=== PATIENT | female | born 1945 | race Asian ===

== ENCOUNTER 2020-11-15 11:59 | Outpatient (REF) | payer MEDICARE, SELFPAY ==
[2020-11-15 13:55] LABS: MANUAL DIFF FLAG NO
[2020-11-15 14:08] LABS: Basophils Percent Auto 0.4 % (0-2); Eosinophils Absolute Auto 0.4 X10*3/uL (0.0-0.4); Eosinophils Percent Auto 5.1 % (0-4); Hematocrit 41.5 % (37-47); Hemoglobin 13.2 g/dl (12.0-16.0); Imm Gran Abs Auto 0.01 X10*3/uL (0.00-0.03); Imm Gran Pct Auto 0.1 % (0.0-0.4); Lymphocytes Absolute Auto 2.2 X10*3/uL (1.2-4.9); Lymphocytes Percent Auto 31.9 % (20-40); Mean Corpuscular HGB Conc 31.8 g/dl (31.0-35.0); Mean Corpuscular Hemoglobin 26.9 pg (27.0-33.0); Mean Corpuscular Volume 84.7 fL (80-98); Mean Platelet Volume 10.3 fL (9.4-12.3); Monocytes Absolute Auto 0.5 X10*3/uL (0.1-1.2); Monocytes Percent Auto 6.5 % (2-11); Neutrophils Absolute Auto 3.9 X10*3/uL (2.0-8.3); Platelet Count 258 X10*3/uL (160-400); Red Cell Distribution Width 13.1 % (11.0-16.0); White Blood Count 6.9 X10*3/uL (4.8-10.8)
[2020-11-15 14:16] LABS: Alanine Aminotransferase 12 U/L (0-31); Alkaline Phosphatase 82 U/L (39-117); Anion Gap 15 (12-20); Aspartate Amino Transferase 16 U/L (5-31); Bilirubin Total 0.6 mg/dL (0.0-1.0); Blood Urea Nitrogen 16 mg/dL (9-16); Calcium 9.3 mg/dL (8.4-10.2); Carbon Dioxide 26 mmol/L (22-29); Chloride 104 mmol/L (96-108); Estimated Glomerular Filt Rate 53; Glucose Random 128 mg/dL (60-115); Potassium 3.8 mmol/L (3.3-5.1); Sodium 141 mmol/L (135-145); Total Protein 6.8 g/dL (6.5-8.0)
== END 2020-11-15 12:00 | disposition home or self-care (01) ==
LOC: HO.HMGCLDS 11:59
PROVIDERS: PCP Internal Medicine; Visit Provider Internal Medicine
DX: E66.09 Other obesity due to excess calories (principal); I10 Essential (primary) hypertension; J45.40 Moderate persistent asthma, uncomplicated
CPT/HCPCS: 36415; 80053; 85025

== ENCOUNTER 2023-01-13 10:29 | Outpatient (AMB) | payer MEDICARE, SELFPAY ==
--- NOTE | 2023-01-13 10:34 | AM.OFFVISMDC ---
Intake Vital Signs 01/13/23 11:03 Height 4 ft 11 in Weight 146 lb BMI 29.5 BP 130/90 H Blood Pressure Location Lt brachial Position Sitting Pulse 64 Pulse Source Pulse Oximeter Pulse Oximetry (%) 94 Oxygen Delivery Method Room Air Intake Visit Reasons: AWV Allergies No Known Allergies [No Known Allergies*] Allergy (Unverified 01/13/23 11:03) Medication List - Last Reconciled 01/13/23 by Rodrigo Burns MD acetaminophen (Tylenol Extra Strength) 500 mg PO Q6H PRN ascorbate calcium (vitamin C) 500 mg PO DAILY cholecalciferol (vitamin D3) 50 mcg PO DAILY fluticasone furoate-vilanterol 200-25 mcg/dose (Breo Ellipta) 1 inh inhalation DAILY 30 days losartan-hydrochlorothiazide 100-25 mg 1 tab PO DAILY 90 days naproxen sodium (Aleve) 220 mg PO Q12H PRN Do you need a note to return to daycare/school/sports/work: No HPI AWV HPI Details Patient is 77-year-old female came in today for her regular follow-up and Medicare wellness visit Patient was supposed to have labs done early this year but she did not because she did not had a ride She says that she is fasting today and she will have it done today. Asthma is stable patient is on Breo inhaler daily Blood pressure is 130/90, patient is taking losartan hydrochlorothiazide 100-25 mg and is tolerating medication Bittinger blood pressure for this patient is less than 140 systolic. Patient has signed forms today to be DNR after discussion. She has not seen eye doctor in a while I have placed a referral for her Also instructed patient to call the [facility] to see if they can provide her writes to doctor's appointment As currently she is dependent on her friend who is limited on timings. She has declined to do any mammograms Pap smear or colonoscopies. Follow-up 3 months HPI Comments History of Present Illness Details AWV Medical/social history reviewed Past medical history reviewed [place] of care / care team list updated Surgical/ hospitalization history reviewed Current medications including OTC and supplements reviewed Family history reviewed Tobacco controlled form updated Alcohol use form updated Illicit drug use in social history reviewed Current diagnosis of depression ?screening updated Appropriate PHQ 2/PHQ-9 completed . Vital signs reviewed Alcohol tobacco drug use reviewed and discussed . MMSE completed . ? Fall risk: ?Assessed Fall history: ?None Have you had any falls with injury in the past year?? No Have you had 2 or more falls in the past year?? No Fall risk assessment completed Home safety discussed with the patient Functional ability assessed and discussed and documented Activities of daily living reviewed and appropriate actions taken . HRA filled out by the patient and reviewed by provider and scanned . Appropriate written screening schedule established . Any health advise needed provided . Advance care planning discussed with the patient , necessary paperwork filled Examination IPPE/AWE: Balance intact Romberg intact Tandem walk intact walk-in turn intact rise from sit to stand intact . ?Hearing ?whisper test pass . Medication list reviewed, patient is stable on medications All other providers patient is seeing discussed and noted . COUNTS INCLUDE 234 BEDS AT THE [facility] Social History Housing: House Patient Tobacco Use Status: Never used Tobacco e-Cigarette/Vaping Use: Never Used Current occupational status: retired Questionnaire Medicare Wellness Checkup [age] What gender do you identify with?: female During the past 4 weeks, how much have you been bothered by emotional problems such as feeling anxious, depressed, irritable, sad or downhearted, and blue?: not at all During the past 4 weeks, has your physical & emotional health limited your social activities with family, friends, neighbors, or groups?: not at all During the past 4 weeks, how much bodily pain have you generally had?: mild pain During the past 4 weeks, was someone available to help you if you needed & wanted help?: yes, as much as I wanted Can you get to places out of walking distance without help? (For eg., can you travel alone on buses, taxis or drive your car?): Yes Can you go shopping for groceries or clothes without someone's help?: Yes Can you prepare your own meals?: Yes Can you do your housework without help?: Yes Because of any health problems, do you need the help of another person with your personal care needs such as eating, bathing, dressing or getting around the house?: No Can you handle your own money without help?: Yes During the past 4 weeks, how would you rate your health in general?: good During the past 4 weeks how have things been going for you?: pretty well Are you having difficulties driving your car?: not applicable, I don't use a car Do you always fasten your seat belt when you are in a car?: yes, usually During past 4 weeks, have you been bothered by the following: never: Falling or dizzy when standing up, Sexual problems?, Trouble eating well?, Teeth or denture problems?, Problems using the telephone? and Tiredness or fatigue? Have you fallen 2 or more times in the past year?: No Are you afraid of falling?: Yes Are you a smoker?: no During the past 4 weeks, how many drinks of wine, beer, or other alcoholic beverages did you have?: no alcohol at all Do you exercise for about 20 minutes 3 or more times a week?: no, I usually do not exercise this much How often do you have trouble taking medicines the way you have been told to take them?: I seldom take medications as prescribed How confident are you that you can control & manage most of your health problems?: very confident What is your race?: Mini Mental State Exam (MMSE) Orientation What is the (year) (season) (date) (day) (month)?: year, season, date, day and month Where are we (state) (county) (town or city) (hospital) (floor)?: state, county, town or city, hospital/clinic and floor Score Score: 10 Activity of Daily Living Bathing - sponge bath, tub bath or shower: receives no assistance (gets in/out by self, if usual bathing means Dressing - getting clothes from closets & drawers, including inner/outer garments & fasteners.: gets clothes & gets completely dressed without help Toileting - going to the 'toilet room' for urine/bowel elimination & cleaning self/arranging clothes: goes to toilet room, cleans self, arranges clothes without help Transfer: moves in & out of bed and chair without help (may use support object) Continence: controls urination/bowel movements completely by self Feeding: feeds self without help Total Score: 0 Information obtained from: patient Using telephone: independent Traveling: needs assistance Shopping: needs assistance Preparing meals: independent Housework: independent Taking medicine: independent Managing money: independent PHQ-9 Over the last 2 weeks, how often have you been bothered by any of the following problems? 1. Little interest or pleasure in doing things: not at all 2. Feeling down, depressed, or hopeless: not at all 3. Trouble falling or staying asleep, or sleeping too much: not at all 4. Feeling tired or having little energy: not at all 5. Poor appetite or overeating: not at all 6. Feeling bad about yourself - or that you are a failure or have let yourself or your family down: not at all 7. Trouble concentrating on things, such as reading the newspaper or watching television: not at all 8. Moving or speaking so slowly that other people could have noticed. Or the opposite - being so fidgety or restless that you have been moving around a lot more than usual: not at all 9. Thoughts that you would be better off or of hurting yourself in some way: not at all Total score: 0 Depression Screening Interpretation: Negative 11667 - PHQ-9 Billing: Yes Source: Developed by Drs. Joseph Mcadams, Kassi Euceda, Cirilo Grossman and colleagues, with an educational yancy from [employer]. Review of Systems Const Denies chills and Denies fever(s) ENT Denies epistaxis and Denies nasal discharge Card Denies chest pain Resp Denies chest congestion, Denies cough and Denies hemoptysis GI Denies diarrhea and Denies nausea Skin/Breast Denies rash Neuro Reports no additional complaints Psych Reports no additional complaints Endo Reports no additional complaints Physical Exam Vital Signs: Last Vital Signs Pulse 64 01/13/23 11:03 BP 130/90 H 01/13/23 11:03 Pulse Ox 94 01/13/23 11:03 Oxygen Delivery Method Room Air 01/13/23 11:03 BMI result Body Mass Index 29.5 Const General: cooperative, comfortable and no acute distress Orientation/consciousness: patient oriented x3 HEENT Head: Yes normocephalic Eyes General: appearance normal, both eyes and all related structures Neck Other: Supple Neck: Yes supple Resp Effort & Inspection: normal respiratory effort, no cough and no stridor Cardio Rhythm: regular rhythm Heart sounds: S1 normal heart sound present and S2 normal heart sound present Skin General skin exam: turgor normal Neuro Other: Motor sensory intact General: patient oriented x3, tone normal and moves all extremities Extrem Other: No lower extremity swelling. Right lower extremity: no edema Left lower extremity: no edema Psych Other: Normal effect, speech clear Assessment & Plan Assessment & Plan (1) Blurring of vision: Code(s): H53.8 - Other visual disturbances (2) Hypertension, essential: Code(s): I10 - Essential (primary) hypertension (3) Asthma, moderate persistent: Code(s): J45.40 - Moderate persistent asthma, uncomplicated (4) Obesity due to excess calories: Code(s): E66.09 - Other obesity due to excess calories Plan Patient is 77-year-old female came in today for her regular follow-up and Medicare wellness visit Patient was supposed to have labs done early this year but she did not because she did not had a ride She says that she is fasting today and she will have it done today. Asthma is stable patient is on Breo inhaler daily Blood pressure is 130/90, patient is taking losartan hydrochlorothiazide 100-25 mg and is tolerating medication Bittinger blood pressure for this patient is less than 140 systolic. Patient has signed forms today to be DNR after discussion. She has not seen eye doctor in a while I have placed a referral for her Also instructed patient to call the [facility] to see if they can provide her writes to doctor's appointment As currently she is dependent on her friend who is limited on timings. She has declined to do any mammograms Pap smear or colonoscopies. Follow-up 3 months Orders: Referrals Ophthalmology Referral H53.8 - Other visual disturbances Quality Reporting (2019) Depression/Bipolar (159/160/161/177) PHQ-9: Total score: 0 Coding Level of Care Code Medicare First (G0438) Est Pt Level 3 (60136) Diagnoses Blurring of vision H53.8 Hypertension, essential I10 Asthma, moderate persistent J45.40 Obesity due to excess calories E66.09 CPT Codes Advance Care Planning - Time spent: 16-45 minutes ([id number]) Advance Care Planning Forms completed: Health Care Proxy and [facility]OLST Time spent: 16-45 minutes
[2023-01-13 11:03] VITALS: BP 130/90; PULSE 64; O2SAT 94; BMI 29.5
== END 2023-01-13 11:28 | disposition home or self-care (01) ==
PROVIDERS: Visit Provider Internal Medicine
DX: I10 Essential (primary) hypertension (principal); J45.40 Moderate persistent asthma, uncomplicated; E66.09 Other obesity due to excess calories; Z68.29 Body mass index [BMI] 29.0-29.9, adult; H53.8 Other visual disturbances
CPT/HCPCS: G0438

== ENCOUNTER 2023-01-13 11:28 | Outpatient (REF) | payer MEDICARE, SELFPAY ==
[2023-01-13 13:22] LABS: MANUAL DIFF FLAG NO
[2023-01-13 13:45] LABS: Basophils Percent Auto 0.7 % (0-2); Eosinophils Absolute Auto 0.2 X10*3/uL (0.0-0.4); Eosinophils Percent Auto 3.6 % (0-4); Hemoglobin 14.1 g/dl (12.0-16.0); Imm Gran Abs Auto 0.01 X10*3/uL (0.00-0.03); Imm Gran Pct Auto 0.2 % (0.0-0.4); Lymphocytes Absolute Auto 1.9 X10*3/uL (1.2-4.9); Lymphocytes Percent Auto 32.5 % (20-40); Mean Corpuscular Hemoglobin 28.3 pg (27.0-33.0); Mean Corpuscular Volume 88.2 fL (80.0-98.0); Mean Platelet Volume 10.5 fL (9.4-12.3); Monocytes Absolute Auto 0.3 X10*3/uL (0.1-1.2); Monocytes Percent Auto 4.9 % (2-11); Neutrophils Absolute Auto 3.4 x10*3/uL (2.0-8.3); Neutrophils Percent Auto 58.1 % (45-73); Platelet Count 201 X10*3/uL (160-400); Red Blood Count 4.99 X10*6/uL (4.20-5.50); Red Cell Distribution Width 12.7 % (11.0-16.0); White Blood Count 5.8 X10*3/uL (4.8-10.8)
[2023-01-13 14:16] LABS: Alanine Aminotransferase 15 U/L (0-31); Albumin Level 4.1 g/dL (3.5-5.0); Alkaline Phosphatase 64 U/L (39-117); Anion Gap 12 (12-20); Aspartate Amino Transferase 17 U/L (5-31); Bilirubin Total 0.5 mg/dL (0.0-1.0); Blood Urea Nitrogen 28 mg/dL (9-16); Calcium 10.4 mg/dL (8.4-10.2); Carbon Dioxide 30 mmol/L (22-29); Chloride 103 mmol/L (96-108); Cholesterol 224 mg/dL (<200); Estimated Glomerular Filt Rate 57; Glucose Fasting 124 mg/dL (60-99); HDL Cholesterol 83 mg/dL (>40); LDL Cholesterol Calculated 126 mg/dL (<100); Potassium 3.9 mmol/L (3.3-5.1); Sodium 141 mmol/L (135-145); Triglycerides 76 mg/dL (<150)
[2023-01-13 14:32] LABS: TSH reflex Free T4 1.68 uIU/mL (0.32-4.0)
[2023-01-17 15:03] LABS: Vitamin D 25-OH, D2 <4 ng/mL; Vitamin D 25-OH, D3 48 ng/mL; Vitamin D 25-OH, Total 48 ng/mL (30-100)
== END 2023-01-13 11:29 | disposition home or self-care (01) ==
LOC: HO.HMGCLDS 11:28
PROVIDERS: PCP Internal Medicine; Visit Provider Internal Medicine
DX: E66.09 Other obesity due to excess calories (principal); J45.40 Moderate persistent asthma, uncomplicated; M25.562 Pain in left knee; I10 Essential (primary) hypertension
CPT/HCPCS: 36415; 80053; 80061; 82306; 84443; 85025

== ENCOUNTER 2023-07-06 10:38 | Outpatient (AMB) | payer MEDICARE, SELFPAY ==
[2023-07-06 10:46] VITALS: BP 138/82; PULSE 70; O2SAT 96; BMI 30.5
--- NOTE | 2023-07-06 10:46 | A.OFFPC_ITS ---
Vital Signs 07/06/23 10:46 Height 4 ft 11 in Weight 151 lb 2 oz BMI 30.5 BP 138/82 Blood Pressure Location Rt brachial Position Sitting Pulse 70 Pulse Source Pulse Oximeter Pulse Oximetry (%) 96 Oxygen Delivery Method Room Air Intake Visit Reasons: Overdue F/u~ Allergies No Known Allergies [No Known Allergies*] Allergy (Verified 07/06/23 10:52) Medication List - Last Reconciled 07/06/23 by Rodrigo Burns MD ascorbate calcium (vitamin C) 500 mg PO DAILY cholecalciferol (vitamin D3) 50 mcg PO DAILY fluticasone furoate-vilanterol 200-25 mcg/dose (Breo Ellipta) 1 inh inhalation DAILY 30 days losartan-hydrochlorothiazide 100-25 mg 1 tab PO DAILY 90 days naproxen sodium (Aleve) 220 mg PO Q12H PRN Tobacco use date assessed: 07/06/23 Fall risk assessment: No Falls in past year Last assessed Fall Risk: 07/06/23 Dental Screening Dental Screen Date: 07/06/23 Did you have a dental visit in the last 12 months?: Yes Did you have a dental problem in the last 6 months where you did not have access to dental care?: No Was dental information given to patient?: Patient has dentist HPI Overdue F/u~ HPI Details Patient is 78-year-old female came in today for her regular follow-up appointment She missed her regular 3 month follow-up appointment last time she was seen was December of last year Due for labs, order placed she will have it done today Taking all her medications no side effects Blood pressure is 138/82 Patient has lost her partner of 52 years 2 weeks ago she is very depressed and weeping She does not want to take any medication however requesting therapy. I have our behavior health coordinator talk to the patient refill help her set up with a therapist Asthma is stable patient is taking her inhaler She has appointment with me in August for follow-up [facility] Social History Housing: House Patient Tobacco Use Status: Never used Tobacco e-Cigarette/Vaping Use: Never Used Current occupational status: retired Cognitive needs: No Hearing needs: No Vision needs: No Questionnaire Thrive Questionnaire Date Thrive assessed: 11/15/20 AUDIT C Alcohol Use Questionnaire (AUDIT-C) 1. How often do you have a drink containing alcohol?: Never 3. How often do you have six or more drinks on one occasion?: Never Total Score: 0 Score Reviewed/Action Taken: Yes Review of Systems Const Denies chills and Denies fever(s) ENT Denies epistaxis and Denies nasal discharge Card Denies chest pain Resp Denies chest congestion, Denies cough and Denies hemoptysis GI Denies diarrhea and Denies nausea Skin/Breast Denies rash Neuro Reports no additional complaints Psych Reports no additional complaints Endo Reports no additional complaints Physical exam (Primary Care) Vital Signs: Last Vital Signs Pulse 70 07/06/23 10:46 BP 138/82 07/06/23 10:46 Pulse Ox 96 07/06/23 10:46 Oxygen Delivery Method Room Air 07/06/23 10:46 BMI result Body Mass Index 30.5 Tobacco/Smoking Status: Tobacco use Status Tobacco use date assessed 07/06/23 07/06/23 10:52 Patient Tobacco Use Status Never used Tobacco 07/06/23 10:48 e-Cigarette/Vaping Use Never Used 07/06/23 10:48 Thrive Assessment: Date of Thrive Assessment Date Thrive assessed 11/15/20 07/06/23 10:48 Const General: cooperative, comfortable and no acute distress Orientation/consciousness: patient oriented x3 HENMT Head: Yes normocephalic Eyes General: appearance normal, both eyes and all related structures Neck Neck: Yes supple Resp Effort & Inspection: normal respiratory effort, no cough and no stridor Cardio Rhythm: regular rhythm Heart sounds: S1 normal heart sound present and S2 normal heart sound present Skin General skin exam: turgor normal Neuro General: patient oriented x3, tone normal and moves all extremities Extrem Right lower extremity: no edema Left lower extremity: no edema Assessment and Plan Assessment & Plan (1) Hypertension, essential: Code(s): I10 - Essential (primary) hypertension (2) Diet-controlled diabetes mellitus: Code(s): E11.9 - Type 2 diabetes mellitus without complications (3) Asthma, moderate persistent: Code(s): J45.40 - Moderate persistent asthma, uncomplicated Qualifiers: Asthma complication type: uncomplicated Qualified Code(s): J45.40 - Moderate persistent asthma, uncomplicated (4) Bereavement reaction: Code(s): F43.20 - Adjustment disorder, unspecified; Z63.4 - Disappearance and of family member (5) Obesity due to excess calories: Code(s): E66.09 - Other obesity due to excess calories Qualifiers: Body mass index: BMI 30.0-30.9 Obesity classification: adult class 1 (BMI 30 - 34.9) Serious obesity comorbidity presence: with serious comorbidity Qualified Code(s): E66.09 - Other obesity due to excess calories; Z68.30 - Body mass index [BMI] 30.0-30.9, adult (6) Primary osteoarthritis of knees, bilateral: Code(s): M17.0 - Bilateral primary osteoarthritis of knee Plan Patient is 78-year-old female came in today for her regular follow-up appointment She missed her regular 3 month follow-up appointment last time she was seen was December of last year Due for labs, order placed she will have it done today Taking all her medications no side effects Blood pressure is 138/82 Patient has lost her partner of 52 years 2 weeks ago she is very depressed and weeping She does not want to take any medication however requesting therapy. I have our behavior health coordinator talk to the patient refill help her set up with a therapist Asthma is stable patient is taking her inhaler Patient has primary osteoarthritis multiple joints, stable at this time She has appointment with me in August for follow-up Orders: Orders Complete Blood Count Auto Diff Today E11.9 - Type 2 diabetes mellitus without complications, E66.09 - Other obesity due to excess calories, I10 - Essential (p rimary) hypertension, J45.40 - Moderate persistent asthma, uncomplicated, M17.0 - Bilateral primary osteoarthritis of knee Hemoglobin A1c Today E11.9 - Type 2 diabetes mellitus without complications, E66.09 - Other obesity due to excess calories, I10 - Essential (primary) hypertension, J45.40 - Moderate persistent asthma, uncomplicated, M17.0 - Bilateral primary osteoarthritis of knee Comprehensive Met. Panel Today E11.9 - Type 2 diabetes mellitus without complications, E66.09 - Other obesity due to excess calories, I10 - Essential (primary) hypertension, J45.40 - Moderate persistent asthma, uncomplicated, M17.0 - Bilateral primary osteoarthritis of knee Microalbumin, Random (w Creat) Today E11.9 - Type 2 diabetes mellitus without complications, E66.09 - Other obesity due to excess calories, I10 - Essential (primary) hypertension, J45.40 - Moderate persistent asthma, uncomplicated, M17.0 - Bilateral primary osteoarthritis of knee Coding Level of Care Code Est Pt Level 4 (44241) Diagnoses Hypertension, essential I10 Diet-controlled diabetes mellitus E11.9 Moderate persistent asthma without complication J45.40 Asthma complication type: uncomplicated Bereavement reaction F43.20; Z63.4 Class 1 obesity due to excess calories with serious comorbidity and body mass index (BMI) of 30.0 to 30.9 in adult E66.09; Z68.30 Body mass index: BMI 30.0-30.9 Obesity classification: adult class 1 (BMI 30 - 34.9) Serious obesity comorbidity presence: with serious comorbidity Primary osteoarthritis of knees, bilateral M17.0
== END 2023-07-06 11:33 | disposition home or self-care (01) ==
PROVIDERS: PCP Internal Medicine; Visit Provider Internal Medicine
DX: I10 Essential (primary) hypertension (principal); E11.9 Type 2 diabetes mellitus without complications; J45.40 Moderate persistent asthma, uncomplicated; F43.20 Adjustment disorder, unspecified; Z63.4 Disappearance and death of family member; E66.09 Other obesity due to excess calories; Z68.30 Body mass index [BMI] 30.0-30.9, adult; M17.0 Bilateral primary osteoarthritis of knee
CPT/HCPCS: 99214

== ENCOUNTER 2023-07-06 11:34 | Outpatient (REF) | payer MEDICARE, SELFPAY ==
[2023-07-06 13:23] LABS: MANUAL DIFF FLAG NO
[2023-07-06 13:34] LABS: Basophils Percent Auto 0.5 % (0-2); Eosinophils Absolute Auto 0.2 X10*3/uL (0.0-0.4); Eosinophils Percent Auto 2.5 % (0-4); Hematocrit 44.9 % (37.0-47.0); Hemoglobin 14.6 g/dl (12.0-16.0); Imm Gran Abs Auto 0.02 X10*3/uL (0.00-0.03); Imm Gran Pct Auto 0.3 % (0.0-0.4); Lymphocytes Absolute Auto 1.4 X10*3/uL (1.2-4.9); Lymphocytes Percent Auto 23.7 % (20-40); Mean Corpuscular HGB Conc 32.5 g/dl (31.0-35.0); Mean Corpuscular Volume 86.2 fL (80.0-98.0); Mean Platelet Volume 10.8 fL (9.4-12.3); Monocytes Absolute Auto 0.4 X10*3/uL (0.1-1.2); Monocytes Percent Auto 5.9 % (2-11); Neutrophils Absolute Auto 4.1 x10*3/uL (2.0-8.3); Neutrophils Percent Auto 67.1 % (45-73); Platelet Count 201 X10*3/uL (160-400); Red Blood Count 5.21 X10*6/uL (4.20-5.50); Red Cell Distribution Width 12.7 % (11.0-16.0); White Blood Count 6.1 X10*3/uL (4.8-10.8)
[2023-07-06 13:41] LABS: Estimated Average Glucose 120 mg/dL; Hemoglobin A1c % 5.8 % (<6.0)
[2023-07-06 13:42] LABS: Alanine Aminotransferase 13 U/L (0-31); Alkaline Phosphatase 72 U/L (39-117); Anion Gap 13 (12-20); Aspartate Amino Transferase 15 U/L (5-31); Bilirubin Total 0.6 mg/dL (0.0-1.0); Blood Urea Nitrogen 32 mg/dL (9-16); Calcium 9.6 mg/dL (8.4-10.2); Carbon Dioxide 30 mmol/L (22-29); Chloride 101 mmol/L (96-108); Estimated Glomerular Filt Rate 59; Glucose Random 126 mg/dL (60-115); Potassium 4.1 mmol/L (3.3-5.1); Sodium 140 mmol/L (135-145); Total Protein 7.1 g/dL (6.5-8.0)
[2023-07-06 14:13] LABS: Creatinine Urine 15.61 mg/dL; Microalbumin Urine < 5.0 mg/L
== END 2023-07-06 11:35 | disposition home or self-care (01) ==
LOC: HO.HMGCLDS 11:34
PROVIDERS: PCP Internal Medicine; Visit Provider Internal Medicine
DX: I10 Essential (primary) hypertension (principal); J45.40 Moderate persistent asthma, uncomplicated; E66.09 Other obesity due to excess calories; E11.9 Type 2 diabetes mellitus without complications; M17.0 Bilateral primary osteoarthritis of knee
CPT/HCPCS: 36415; 80053; 82043; 82570; 83036; 85025

== ENCOUNTER 2023-08-18 14:44 | Outpatient (AMB) | payer MEDICARE, SELFPAY ==
--- NOTE | 2023-08-18 14:44 | A.OFFPC_ITS ---
Intake Visit Reasons: 6 month fu Allergies No Known Allergies [No Known Allergies*] Allergy (Verified 08/18/23 14:45) Medication List - Last Reconciled 08/18/23 by Rodrigo Burns MD ascorbate calcium (vitamin C) 500 mg PO DAILY cholecalciferol (vitamin D3) 50 mcg PO DAILY fluticasone furoate-vilanterol 200-25 mcg/dose (Breo Ellipta) 1 inh inhalation DAILY 30 days losartan-hydrochlorothiazide 100-25 mg 1 tab PO DAILY 90 days naproxen sodium (Aleve) 220 mg PO Q12H PRN Tobacco use date assessed: 08/18/23 Fall risk assessment: No Falls in past year Last assessed Fall Risk: 08/18/23 Dental Screening Dental Screen Date: 08/18/23 Did you have a dental visit in the last 12 months?: Yes Did you have a dental problem in the last 6 months where you did not have access to dental care?: No Was dental information given to patient?: Patient has dentist HPI 6 month fu HPI Details Patient is 78-year-old female came in today for her regular follow-up appointment She is doing better going through bereavement process, has seen a therapist but patient says that she feels she will relate better with a female therapist However she does not want anymore therapy patient's says that she feels she is going to be or right as she is feeling much better than when she was seen last Taking all her medications no side effects Blood pressure is stable Asthma is stable patient is taking her inhaler Patient has primary osteoarthritis multiple joints, stable at this time She has appointment in December to return for follow-up Labs were done in June reviewed [facility] Social History Housing: House Patient Tobacco Use Status: Never used Tobacco e-Cigarette/Vaping Use: Never Used service: No Current occupational status: retired Cognitive needs: No Hearing needs: No Vision needs: No Questionnaire Thrive Questionnaire Date Thrive assessed: 11/15/20 AUDIT C Alcohol Use Questionnaire (AUDIT-C) 1. How often do you have a drink containing alcohol?: Never 3. How often do you have six or more drinks on one occasion?: Never Total Score: 0 Score Reviewed/Action Taken: Yes Review of Systems Const Denies chills and Denies fever(s) ENT Denies epistaxis and Denies nasal discharge Card Denies chest pain Resp Denies chest congestion, Denies cough and Denies hemoptysis GI Denies diarrhea and Denies nausea Skin/Breast Denies rash Neuro Reports no additional complaints Psych Reports no additional complaints Endo Reports no additional complaints Physical exam (Primary Care) Tobacco/Smoking Status: Tobacco use Status Tobacco use date assessed 08/18/23 08/18/23 14:45 Patient Tobacco Use Status Never used Tobacco 08/18/23 14:45 e-Cigarette/Vaping Use Never Used 08/18/23 14:45 Thrive Assessment: Date of Thrive Assessment Date Thrive assessed 11/15/20 08/18/23 14:45 Telehealth Telehealth Location of provider rendering services: practice address Location of patient: address on file Patient Identification confirmed using: Name, : Yes Telehealth method: voice only Patient verbally consented to treatment: Yes Patient verbally consented to billing insurance company: Yes Patient informed of any privacy concerns related to visit: Yes Minutes spent on Phone/Video with Pt.: 14 Assessment and Plan Assessment & Plan (1) Hypertension, essential: Code(s): I10 - Essential (primary) hypertension (2) Diet-controlled diabetes mellitus: Code(s): E11.9 - Type 2 diabetes mellitus without complications (3) Asthma, moderate persistent: Code(s): J45.40 - Moderate persistent asthma, uncomplicated Qualifiers: Asthma complication type: uncomplicated Qualified Code(s): J45.40 - Moderate persistent asthma, uncomplicated (4) Bereavement reaction: Code(s): F43.20 - Adjustment disorder, unspecified; Z63.4 - Disappearance and of family member (5) Primary osteoarthritis of knees, bilateral: Code(s): M17.0 - Bilateral primary osteoarthritis of knee Plan Patient is 78-year-old female came in today for her regular follow-up appointment She is doing better going through bereavement process, has seen a therapist but patient says that she feels she will relate better with a female therapist However she does not want anymore therapy patient's says that she feels she is going to be or right as she is feeling much better than when she was seen last Taking all her medications no side effects Blood pressure is stable Asthma is stable patient is taking her inhaler Patient has primary osteoarthritis multiple joints, stable at this time She has appointment in December to return for follow-up Labs were done in June reviewed Coding Level of Care Code Tele Est Pt Level 3 (00919) Diagnoses Hypertension, essential I10 Diet-controlled diabetes mellitus E11.9 Moderate persistent asthma without complication J45.40 Asthma complication type: uncomplicated Bereavement reaction F43.20; Z63.4 Primary osteoarthritis of knees, bilateral M17.0
== END 2023-08-18 17:13 | disposition home or self-care (01) ==
LOC: HO.HMGC 14:44
PROVIDERS: PCP Internal Medicine; Visit Provider Internal Medicine
DX: I10 Essential (primary) hypertension (principal); E11.9 Type 2 diabetes mellitus without complications; J45.40 Moderate persistent asthma, uncomplicated; F43.20 Adjustment disorder, unspecified; Z63.4 Disappearance and death of family member; M17.0 Bilateral primary osteoarthritis of knee
CPT/HCPCS: 99442

== ENCOUNTER 2023-12-22 09:37 | Outpatient (AMB) | payer MEDICARE, SELFPAY ==
[2023-12-22 09:38] VITALS: BP 138/88; PULSE 89; O2SAT 95; BMI 31.7
--- NOTE | 2023-12-22 09:38 | MHC.PC.OV ---
Vital Signs 12/22/23 09:38 Height 4 ft 11 in Weight 157 lb BMI 31.7 BP 138/88 Blood Pressure Location Lt brachial Position Sitting Pulse 89 Pulse Source Pulse Oximeter Pulse Oximetry (%) 95 Oxygen Delivery Method Room Air Intake Visit Reasons: 9 month fu Allergies No Known Allergies [No Known Allergies*] Allergy (Verified 12/22/23 09:38) Medication List - Last Reconciled 12/22/23 by Rodrigo Burns MD ascorbate calcium (vitamin C) 500 mg PO DAILY cholecalciferol (vitamin D3) 50 mcg PO DAILY fluticasone furoate-vilanterol 200-25 mcg/dose (Breo Ellipta) 1 inh inhalation DAILY 30 days losartan-hydrochlorothiazide 100-25 mg 1 tab PO DAILY 90 days naproxen sodium (Aleve) 220 mg PO Q12H PRN Tobacco use date assessed: 12/22/23 Fall risk assessment: No Falls in past year Last assessed Fall Risk: 12/22/23 Dental Screening Dental Screen Date: 12/22/23 Did you have a dental visit in the last 12 months?: Yes Did you have a dental problem in the last 6 months where you did not have access to dental care?: No Was dental information given to patient?: Patient has dentist HPI 9 month fu HPI Details Patient is 78-year-old female came in today for her regular follow-up appointment Patient suffers from osteoarthritis bilateral knee, and is now having swelling of her knees which is causing difficulty walking She is using cane for ambulation We talked about possibility of knee replacement She is reluctant as she lives alone and also feels that it will be very costly I would recommend to call insurance company to see if she has any co-pay for this procedure Patient will think about it and will get back to me if she wants orthopedic referral. Meanwhile she is taking a leave as needed I have sent diclofenac local she may rub that the knees as needed On examination today she does have a swelling of her knees right more than left I have added x-ray of her knees today along with labs that she is due for Taking all her medications no side effects Blood pressure is stable Asthma is stable patient is taking her inhaler Follow-up March or April [facility] Social History Housing: House Patient Tobacco Use Status: Never used Tobacco e-Cigarette/Vaping Use: Never Used service: No Current occupational status: retired Cognitive needs: No Hearing needs: No Vision needs: No Questionnaire PHQ-9 Over the last 2 weeks, how often have you been bothered by any of the following problems? 1. Little interest or pleasure in doing things: not at all 2. Feeling down, depressed, or hopeless: not at all 3. Trouble falling or staying asleep, or sleeping too much: not at all 4. Feeling tired or having little energy: not at all 5. Poor appetite or overeating: not at all 6. Feeling bad about yourself - or that you are a failure or have let yourself or your family down: not at all 7. Trouble concentrating on things, such as reading the newspaper or watching television: not at all 8. Moving or speaking so slowly that other people could have noticed. Or the opposite - being so fidgety or restless that you have been moving around a lot more than usual: not at all 9. Thoughts that you would be better off or of hurting yourself in some way: not at all Total score: 0 Depression Screening Interpretation: Negative Depression Screening Done: Yes 63057 - PHQ-9 Billing: Yes Source: Developed by Drs. Joseph Mcadams, Kassi Euceda, Cirilo Grossman and colleagues, with an educational yancy from [employer]. Thrive Questionnaire Date Thrive assessed: 12/22/23 I am a: Patient What is your living situation today?: I have a steady place to live Within the past 12 months, did the food you bought not last and you didn't have the money to get more?: Never true Within the past 12 months, did you worry whether your food would run out before you got money to buy more?: Never true Do you have trouble paying for medicines?: No Do you have trouble getting transportation to medical appointments?: No Do you have trouble paying your heating and electricity bill?: No Do you have trouble taking care of your child, family member or friend?: No Do you have trouble with day-to-day activities such as bathing, preparing meals, shopping, managing finances, etc.?: No Are you currently unemployed and looking for a job?: No Are you interested in more education?: No Please select the resources that you would like help with: None Currently or been in a relationship where the following occur: No concerns reported THRIVE Score: 0 AUDIT C Alcohol Use Questionnaire (AUDIT-C) 1. How often do you have a drink containing alcohol?: Never 3. How often do you have six or more drinks on one occasion?: Never Total Score: 0 Score Reviewed/Action Taken: Yes KRISHNA-7 AMB Questionnaire KRISHNA-7 Date KRISHNA - 7 assessed: 12/22/23 Feeling nervous, anxious, or on edge: 0 = Not at all Not being able to stop or control worryin = Not at all Worrying too much about different things: 0 = Not at all Trouble relaxin = Not at all Being so restless that it is hard to sit still: 0 = Not at all Becoming easily annoyed or irritable: 0 = Not at all Feeling afraid as if something awful might happen: 0 = Not at all Total KRISHNA-7 score (0-4 normal; 5-9 mild; 10-14 moderate; 15-21 severe): 0 Source: Developed by Drs. Joseph Mcadams, Kassi Euceda, Cirilo Grossman and colleagues, with an educational yancy from [employer]. KRISHNA-7 Assessment Billing KRISHNA-7 Assessment Tool: KRISHNA-7 Assessment 79052 Review of Systems Const Denies chills and Denies fever(s) ENT Denies epistaxis and Denies nasal discharge Card Denies chest pain Resp Denies chest congestion, Denies cough and Denies hemoptysis GI Denies diarrhea and Denies nausea Skin/Breast Denies rash Neuro Reports no additional complaints Psych Reports no additional complaints Endo Reports no additional complaints Physical exam (Primary Care) Vital Signs: Last Vital Signs Pulse 89 12/22/23 09:38 BP 138/88 12/22/23 09:38 Pulse Ox 95 12/22/23 09:38 Oxygen Delivery Method Room Air 12/22/23 09:38 BMI result Body Mass Index 31.7 Tobacco/Smoking Status: Tobacco use Status Tobacco use date assessed 12/22/23 12/22/23 09:39 Patient Tobacco Use Status Never used Tobacco 12/22/23 09:39 e-Cigarette/Vaping Use Never Used 12/22/23 09:39 PHQ-9: PHQ-9 Score PHQ-9: Total score 0 12/22/23 10:07 Depression Screening Interpretation: Negative Thrive Assessment: Date of Thrive Assessment Date Thrive assessed 12/22/23 12/22/23 09:39 Currently or been in a relationship where the following occur: No concerns reported Const General: cooperative, comfortable and no acute distress Orientation/consciousness: patient oriented x3 HENMT Head: Yes normocephalic Eyes General: appearance normal, both eyes and all related structures Neck Neck: Yes supple Resp Effort & Inspection: normal respiratory effort, no cough and no stridor Cardio Rhythm: regular rhythm Heart sounds: S1 normal heart sound present and S2 normal heart sound present Skin General skin exam: turgor normal Neuro General: patient oriented x3, tone normal and moves all extremities Extrem Right lower extremity: no edema Left lower extremity: no edema Knee images: 1. Diffuse swelling and tenderness to palpation limited range of motion due to pain 2. Same exam as right knee only less swollen Assessment and Plan Assessment & Plan (1) Hypertension, essential: Code(s): I10 - Essential (primary) hypertension (2) Asthma, moderate persistent: Code(s): J45.40 - Moderate persistent asthma, uncomplicated Qualifiers: Asthma complication type: uncomplicated Qualified Code(s): J45.40 - Moderate persistent asthma, uncomplicated (3) Obesity due to excess calories: Code(s): E66.09 - Other obesity due to excess calories Qualifiers: Body mass index: BMI 30.0-30.9 Obesity classification: adult class 1 (BMI 30 - 34.9) Serious obesity comorbidity presence: with serious comorbidity Qualified Code(s): E66.09 - Other obesity due to excess calories; Z68.30 - Body mass index [BMI] 30.0-30.9, adult (4) Diet-controlled diabetes mellitus: Code(s): E11.9 - Type 2 diabetes mellitus without complications (5) Primary osteoarthritis of knees, bilateral: Code(s): M17.0 - Bilateral primary osteoarthritis of knee Plan Patient is 78-year-old female came in today for her regular follow-up appointment Patient suffers from osteoarthritis bilateral knee, and is now having swelling of her knees which is causing difficulty walking She is using cane for ambulation We talked about possibility of knee replacement She is reluctant as she lives alone and also feels that it will be very costly I would recommend to call insurance company to see if she has any co-pay for this procedure Patient will think about it and will get back to me if she wants orthopedic referral. Meanwhile she is taking a leave as needed I have sent diclofenac local she may rub that the knees as needed On examination today she does have a swelling of her knees right more than left I have added x-ray of her knees today along with labs that she is due for Taking all her medications no side effects Blood pressure is stable Asthma is stable patient is taking her inhaler Patient is diet-controlled diabetic we are monitoring hemoglobin A1c BMI is elevated patient is having difficulty losing weight Follow-up March or April Orders: Orders LDL Cholesterol Direct Today E11.9 - Type 2 diabetes mellitus without complications, E66.09 - Other obesity due to excess calories, I10 - Essential (primary) hypertension, J45.40 - Moderate persistent asthma, uncomplicated, M17.0 - Bilateral primary osteoarthritis of knee, Z68.30 - Body mass index [BMI] 30.0-30.9, adult XR knee RT 2V Today M17.0 - Bilateral primary osteoarthritis of knee Hemoglobin A1c Today E11.9 - Type 2 diabetes mellitus without complications, E66.09 - Other obesity due to excess calories, I10 - Essential (primary) hypertension, J45.40 - Moderate persistent asthma, uncomplicated, M17.0 - Bilateral primary osteoarthritis of knee, Z68.30 - Body mass index [BMI] 30.0-30.9, adult Complete Blood Count Auto Diff Today E11.9 - Type 2 diabetes mellitus without complications, E66.09 - Other obesity due to excess calories, I10 - Essential (primary) hypertension, J45.40 - Moderate persistent asthma, uncomplicated, M17.0 - Bilateral primary osteoarthritis of knee, Z68.30 - Body mass index [BMI] 30.0-30.9, adult Comprehensive Met. Panel Today E11.9 - Type 2 diabetes mellitus without complications, E66.09 - Other obesity due to excess calories, I10 - Essential (primary) hypertension, J45.40 - Moderate persistent asthma, uncomplicated, M17.0 - Bilateral primary osteoarthritis of knee, Z68.30 - Body mass index [BMI] 30.0-30.9, adult XR knee LT 2V Today M17.0 - Bilateral primary osteoarthritis of knee Medications: New diclofenac sodium 3% 1 appl topical BID 100 grams 3RF Coding Level of Care Code Est Pt Level 4 (48297) Complex EM visit Add On G2211 Diagnoses Hypertension, essential I10 Moderate persistent asthma without complication J45.40 Asthma complication type: uncomplicated Class 1 obesity due to excess calories with serious comorbidity and body mass index (BMI) of 30.0 to 30.9 in adult E66.09; Z68.30 Body mass index: BMI 30.0-30.9 Obesity classification: adult class 1 (BMI 30 - 34.9) Serious obesity comorbidity presence: with serious comorbidity Diet-controlled diabetes mellitus E11.9 Primary osteoarthritis of knees, bilateral M17.0 Additional Codes KRISHNA-7 Assessment Billing - KRISHNA-7 Assessment Tool: KRISHNA-7 Assessment [id number] ([id number])
== END 2023-12-22 10:24 | disposition home or self-care (01) ==
PROVIDERS: PCP Internal Medicine; Visit Provider Internal Medicine
DX: I10 Essential (primary) hypertension (principal); E11.9 Type 2 diabetes mellitus without complications; J45.40 Moderate persistent asthma, uncomplicated; E66.09 Other obesity due to excess calories; Z68.30 Body mass index [BMI] 30.0-30.9, adult; M17.0 Bilateral primary osteoarthritis of knee
CPT/HCPCS: 99214; G2211

== ENCOUNTER 2023-12-22 10:14 | Outpatient (REF) | payer MEDICARE, SELFPAY ==
[2023-12-22 13:23] LABS: MANUAL DIFF FLAG NO
[2023-12-22 13:30] LABS: Basophils Absolute Auto 0.1 X10*3/uL (0.0-0.2); Eosinophils Absolute Auto 0.3 X10*3/uL (0.0-0.4); Eosinophils Percent Auto 6.5 % (0-4); Hematocrit 44.9 % (37.0-47.0); Hemoglobin 14.6 g/dl (12.0-16.0); Imm Gran Abs Auto 0.01 X10*3/uL (0.00-0.03); Imm Gran Pct Auto 0.2 % (0.0-0.4); Lymphocytes Absolute Auto 1.4 X10*3/uL (1.2-4.9); Lymphocytes Percent Auto 27.4 % (20-40); Mean Corpuscular HGB Conc 32.5 g/dl (31.0-35.0); Mean Corpuscular Hemoglobin 28.3 pg (27.0-33.0); Mean Corpuscular Volume 87.2 fL (80.0-98.0); Mean Platelet Volume 10.5 fL (9.4-12.3); Monocytes Absolute Auto 0.3 X10*3/uL (0.1-1.2); Monocytes Percent Auto 5.5 % (2-11); Neutrophils Percent Auto 59.4 % (45-73); Platelet Count 205 X10*3/uL (160-400); Red Blood Count 5.15 X10*6/uL (4.20-5.50); Red Cell Distribution Width 12.9 % (11.0-16.0); White Blood Count 5.1 X10*3/uL (4.8-10.8)
[2023-12-22 14:06] LABS: Estimated Average Glucose 126 mg/dL
[2023-12-22 14:23] LABS: Alanine Aminotransferase 14 U/L (0-31); Albumin Level 4.1 g/dL (3.5-5.0); Alkaline Phosphatase 62 U/L (39-117); Anion Gap 13 (12-20); Aspartate Amino Transferase 18 U/L (5-31); Bilirubin Total 0.4 mg/dL (0.0-1.0); Blood Urea Nitrogen 26 mg/dL (9-16); Calcium 9.8 mg/dL (8.4-10.2); Carbon Dioxide 28 mmol/L (22-29); Chloride 106 mmol/L (96-108); Estimated Glomerular Filt Rate 49; Glucose Random 127 mg/dL (60-115); Potassium 4.3 mmol/L (3.3-5.1); Sodium 143 mmol/L (135-145); Total Protein 7.1 g/dL (6.5-8.0)
[2023-12-23 10:24] LABS: LDL Cholesterol Direct 118 mg/dL (<100)
== END 2023-12-22 10:15 | disposition home or self-care (01) ==
LOC: HO.HMGCLDS 10:14
PROVIDERS: PCP Internal Medicine; Visit Provider Internal Medicine
DX: I10 Essential (primary) hypertension (principal); J45.40 Moderate persistent asthma, uncomplicated; E66.09 Other obesity due to excess calories; Z68.30 Body mass index [BMI] 30.0-30.9, adult; E11.9 Type 2 diabetes mellitus without complications; M17.0 Bilateral primary osteoarthritis of knee
CPT/HCPCS: 36415; 80053; 83036; 83721; 85025

== ENCOUNTER 2024-09-19 10:12 | Outpatient (REF) | payer MEDICARE, SELFPAY ==
[2024-09-19 13:44] LABS: MANUAL DIFF FLAG NO
[2024-09-19 13:49] LABS: Basophils Absolute Auto 0.1 X10*3/uL (0.0-0.2); Basophils Percent Auto 0.7 % (0-2); Eosinophils Absolute Auto 0.2 X10*3/uL (0.0-0.4); Eosinophils Percent Auto 2.2 % (0-4); Hematocrit 43.6 % (37.0-47.0); Hemoglobin 14.2 g/dl (12.0-16.0); Imm Gran Abs Auto 0.03 X10*3/uL (0.00-0.03); Imm Gran Pct Auto 0.4 % (0.0-0.4); Lymphocytes Absolute Auto 1.6 X10*3/uL (1.2-4.9); Mean Corpuscular HGB Conc 32.6 g/dl (31.0-35.0); Mean Corpuscular Hemoglobin 28.3 pg (27.0-33.0); Mean Corpuscular Volume 86.9 fL (80.0-98.0); Mean Platelet Volume 10.3 fL (9.4-12.3); Monocytes Absolute Auto 0.4 X10*3/uL (0.1-1.2); Neutrophils Absolute Auto 5.2 x10*3/uL (2.0-8.3); Neutrophils Percent Auto 69.7 % (45-73); Platelet Count 189 X10*3/uL (160-400); Red Blood Count 5.02 X10*6/uL (4.20-5.50); Red Cell Distribution Width 13.1 % (11.0-16.0); White Blood Count 7.4 X10*3/uL (4.8-10.8)
[2024-09-19 13:59] LABS: Estimated Average Glucose 126 mg/dL; Hemoglobin A1C 153.3336 umol/L; Total Hemoglobin (HGBA1C) 3685.2717 umol/L
[2024-09-19 15:22] LABS: Anion Gap 14 (12-20)
[2024-09-19 15:25] LABS: Alanine Aminotransferase 14 U/L (0-31); Albumin Level 4.2 g/dL (3.5-5.0); Aspartate Amino Transferase 21 U/L (5-31); Bilirubin Total 0.4 mg/dL (0.0-1.0); Blood Urea Nitrogen 34 mg/dL (9-16); Carbon Dioxide 29 mmol/L (22-29); Chloride 102 mmol/L (96-108); Estimated Glomerular Filt Rate 40; Glucose Random 112 mg/dL (60-115); Potassium 3.8 mmol/L (3.3-5.1); Sodium 141 mmol/L (135-145); Total Protein 7.2 g/dL (6.5-8.0)
[2024-09-19 18:00] LABS: Alkaline Phosphatase 59 U/L (39-117)
[2024-09-20 16:38] LABS: LDL Cholesterol Direct 128 mg/dL (<100)
== END 2024-09-19 10:13 | disposition home or self-care (01) ==
LOC: HO.HMGCLDS 10:12
PROVIDERS: PCP Internal Medicine; Visit Provider Internal Medicine
DX: Z00.00 Encounter for general adult medical examination without abnormal findings (principal); E11.9 Type 2 diabetes mellitus without complications; E66.09 Other obesity due to excess calories; Z68.30 Body mass index [BMI] 30.0-30.9, adult; J45.40 Moderate persistent asthma, uncomplicated; I10 Essential (primary) hypertension; M17.0 Bilateral primary osteoarthritis of knee
CPT/HCPCS: 36415; 80053; 83036; 83721; 85025; 96127; 99212

== ENCOUNTER 2024-09-19 10:12 | Outpatient (AMB) | payer MEDICARE, SELFPAY ==
[2024-09-19 10:18] VITALS: BP 160/94; PULSE 96; O2SAT 97; BMI 32.3
--- NOTE | 2024-09-19 10:18 | A.OFFVIS_ITS ---
Intake Vital Signs 09/19/24 10:18 Height 4 ft 11 in Weight 160 lb BMI 32.3 BP 160/94 H Blood Pressure Location Lt brachial Position Sitting Pulse 96 Pulse Source Pulse Oximeter Pulse Oximetry (%) 97 Oxygen Delivery Method Room Air Intake Visit Reasons: AWV Allergies No Known Allergies [No Known Allergies*] Allergy (Verified 12/22/23 09:38) Medication List - Last Reconciled 09/19/24 by Rodrigo Burns MD ascorbate calcium (vitamin C) 500 mg PO DAILY cholecalciferol (vitamin D3) 50 mcg PO DAILY diclofenac sodium 3% 1 appl topical BID fluticasone furoate-vilanterol 200-25 mcg/dose (Breo Ellipta) 1 inh inhalation DAILY 30 days losartan-hydrochlorothiazide 100-25 mg 1 tab PO DAILY 90 days naproxen sodium (Aleve) 220 mg PO Q12H PRN HPI AWV HPI Details History - The patient is an 79-year-old female p resenting for a Medicare wellness visit. - The patient's blood pressure reading d uring the visit was elevated at 160/94 mmHg, although the patient mentioned she sometimes experiences nervousness upon visiting the clinic. - The patient reports being on medicatio n for hypertension, which includes Losartan and Hydrochlorothiazide - The patient acknowledges not having a blood pressure monitor at home , encouraged patient to get the monitor and start monitoring blood pressure at home - The patient is classified as diet-cont rolled diabetic - The patient was last subjected to bloo d tests in December, and the current visit necessitates further blood testing. - Historical diagnosis of asthma, with t he patient admitting to using a Breo inhaler sporadically, approximately once per week, noting it serves as a security blanket when she feels the need. - Mammograms and colonoscopies are no lo nger part of the patient?s ongoing healthcare screenings. 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 - The patient underwent an eye examinati on last year. - Regarding her mental health, the patie nt mentions a history of depression linked to caregiving stresses and the of a family member but feels significantly better now. Problem List - Essential Hypertension - Diabetes Mellitus, Diet-Controlled - asthma - obesity Patient Instructions - Obtain a home blood pressure monitor a nd regularly check your blood pressure at home. - continue medications - Have your blood samples taken today fo r necessary lab tests. - Follow a diet plan to manage your diab etes. - Return for a follow-up visit in [facility]. - Contact the healthcare provider if you experience any unusual symptoms or changes in your health. Review of Systems - Hearing: Reports difficulty and decrea sed hearing function. - General: No fever no chills - Neurological: No headaches no dizziness - Ear nose throat: No sore throat no hearing difficulty no ear pain - Cardiovascular: No syncope, no chest pain, no palpitations - Gastrointestinal: No nausea vomiting or diarrhea - Endocrine: No polyuria polydipsia no heat intolerance - Genitourinary: No dysuria , no blood in urine Physical Exam General: No acute distress HEENT: Hearing is affected Neck: Supple Respiratory system: Able to talk in full sentences, no audible wheeze Cardiovascular: S1-S2 regular in rate and rhythm Gastrointestinal: No pain Extremities: No new findings 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 Vital signs reviewed Alcohol tobacco drug use reviewed and discussed . MMSE completed . ? Fall risk: ?Assessed Fall history: ?None Have you had any falls with injury in the past year?? No Have you had 2 or more falls in the past year?? No Fall risk assessment completed Home safety discussed with the patient Functional ability assessed and discussed and documented Activities of daily living reviewed and appropriate actions taken . HRA filled out by the patient and reviewed by provider and scanned . Appropriate written screening schedule established . Any health advise needed provided . Advance care planning discussed with the patient , necessary paperwork filled Examination IPPE/AWE: Balance intact Romberg intact Tandem walk intact walk-in turn intact rise from sit to stand intact . ?Hearing ?whisper test failed . Medication list reviewed, patient is stable on medications All other providers patient is seeing discussed and noted . [facility] Social History Housing: [place] Patient Tobacco Use Status: Never used Tobacco e-Cigarette/Vaping Use: Never Used service: No Current occupational status: retired Cognitive needs: No Hearing needs: No Vision needs: No Questionnaire Medicare Wellness Checkup What is your age?: 78 or older What gender do you identify with?: female During the past 4 weeks, how much have you been bothered by emotional problems such as feeling anxious, depressed, irritable, sad or downhearted, and blue?: slightly During the past 4 weeks, has your physical & emotional health limited your social activities with family, friends, neighbors, or groups?: slightly During the past 4 weeks, how much bodily pain have you generally had?: mild pain During the past 4 weeks, was someone available to help you if you needed & wanted help?: yes, as much as I wanted During the past 4 weeks, what was the hardest physical activity you could do for at least 2 minutes?: moderate Can you get to places out of walking distance without help? (For eg., can you travel alone on buses, taxis or drive your car?): Yes Can you go shopping for groceries or clothes without someone's help?: Yes Can you prepare your own meals?: Yes Can you do your housework without help?: Yes Because of any health problems, do you need the help of another person with your personal care needs such as eating, bathing, dressing or getting around the house?: No Can you handle your own money without help?: Yes During the past 4 weeks, how would you rate your health in general?: fair During the past 4 weeks how have things been going for you?: pretty well Are you having difficulties driving your car?: not applicable, I don't use a car Do you always fasten your seat belt when you are in a car?: yes, usually During past 4 weeks, have you been bothered by the following: never: Falling or dizzy when standing up, Sexual problems?, Trouble eating well? and Problems using the telephone? and seldom: Teeth or denture problems? and Tiredness or fatigue? Have you fallen 2 or more times in the past year?: No Are you afraid of falling?: Yes Are you a smoker?: no During the past 4 weeks, how many drinks of wine, beer, or other alcoholic beverages did you have?: no alcohol at all Do you exercise for about 20 minutes 3 or more times a week?: no, I usually do not exercise this much Have you been given information to help with the following?: no: Hazards in your house that might hurt you? and no: Keeping track of your medications? How often do you have trouble taking medicines the way you have been told to take them?: I always take medicine as prescribed How confident are you that you can control & manage most of your health problems?: somewhat confident What is your race?: Mini Mental State Exam (MMSE) Orientation What is the (year) (season) (date) (day) (month)?: year, season, date, day and month Where are we (state) (county) (town or city) (hospital) (floor)?: state, county, town or city, hospital/clinic and floor Score Score: 10 Activity of Daily Living Bathing - sponge bath, tub bath or shower: receives no assistance (gets in/out by self, if usual bathing means Dressing - getting clothes from closets & drawers, including inner/outer garments & fasteners.: gets clothes & gets completely dressed without help Toileting - going to the 'toilet room' for urine/bowel elimination & cleaning self/arranging clothes: goes to toilet room, cleans self, arranges clothes without help Transfer: moves in & out of bed and chair without help (may use support object) Continence: controls urination/bowel movements completely by self Feeding: feeds self without help Total Score: 0 Information obtained from: patient Using telephone: independent Traveling: needs assistance Shopping: needs assistance Preparing meals: independent Housework: independent Taking medicine: independent Managing money: independent PHQ-9 Over the last 2 weeks, how often have you been bothered by any of the following problems? 1. Little interest or pleasure in doing things: not at all 2. Feeling down, depressed, or hopeless: not at all 3. Trouble falling or staying asleep, or sleeping too much: several days 4. Feeling tired or having little energy: not at all 5. Poor appetite or overeating: not at all 6. Feeling bad about yourself - or that you are a failure or have let yourself or your family down: not at all 7. Trouble concentrating on things, such as reading the newspaper or watching television: not at all 8. Moving or speaking so slowly that other people could have noticed. Or the opposite - being so fidgety or restless that you have been moving around a lot more than usual: not at all 9. Thoughts that you would be better off or of hurting yourself in some wa y: not at all Total score: 1 Depression Screening Interpretation: Negative Depression Screening Done: Yes 04315 - PHQ-9 Billing: Yes Source: Developed by Drs. Joseph Mcadams, Kassi Euceda, Cirilo Grossman and colleagues, with an educational yancy from [employer]. Physical Exam Vital Signs: Last Vital Signs Pulse 96 09/19/24 10:18 BP 160/94 H 09/19/24 10:18 Pulse Ox 97 09/19/24 10:18 Oxygen Delivery Method Room Air 09/19/24 10:18 BMI result Body Mass Index 32.3 Assessment & Plan Assessment & Plan (1) Medicare annual wellness visit, subsequent: Code(s): Z00.00 - Encounter for general adult medical examination without abnormal findings (2) Diet-controlled diabetes mellitus: Code(s): E11.9 - Type 2 diabetes mellitus without complications (3) Obesity due to excess calories: Code(s): E66.09 - Other obesity due to excess calories Qualifiers: Body mass index: BMI 30.0-30.9 Obesity classification: adult class 1 (BMI 30 - 34.9) Serious obesity comorbidity presence: with serious comorbidity Qualified Code(s): E66.09 - Other obesity due to excess calories; Z68.30 - Body mass index [BMI] 30.0-30.9, adult (4) Asthma, moderate persistent: Code(s): J45.40 - Moderate persistent asthma, uncomplicated Qualifiers: Asthma complication type: uncomplicated Qualified Code(s): J45.40 - Moderate persistent asthma, uncomplicated (5) Hypertension, essential: Code(s): I10 - Essential (primary) hypertension (6) Primary osteoarthritis of knees, bilateral: Code(s): M17.0 - Bilateral primary osteoarthritis of knee Plan History - The patient is an 79-year-old female presenting for a Medicare wellness visit. - The patient's blood pressure reading during the visit was elevated at 160/94 mmHg, although the patient mentioned she sometimes experiences nervousness upon visiting the clinic. - The patient reports being on medication for hypertension, which includes Losartan and Hydrochlorothiazide - The patient acknowledges not having a blood pressure monitor at home , encouraged patient to get the monitor and start monitoring blood pressure at home - The patient is classified as diet-controlled diabetic - The patient was last subjected to blood tests in December, and the current visit necessitates further blood testing. - Historical diagnosis of asthma, with the patient admitting to using a Breo inhaler sporadically, approximately once per week, noting it serves as a security blanket when she feels the need. - Mammograms and colonoscopies are no longer part of the patient?s ongoing healthcare screenings. 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 - The patient underwent an eye examination last year. - Regarding her mental health, the patient mentions a history of depression linked to caregiving stresses and the of a family member but feels significantly better now. Problem List - Essential Hypertension - Diabetes Mellitus, Diet-Controlled - asthma - obesity Patient Instructions - Obtain a home blood pressure monitor and regularly check your blood pressure at home. - continue medications - Have your blood samples taken today for necessary lab tests. - Follow a diet plan to manage your diabetes. - Return for a follow-up visit in four months. - Contact the healthcare provider if you experience any unusual symptoms or changes in your health. Orders: Orders Complete Blood Count Auto Diff Today E11.9 - Type 2 diabetes mellitus without complications, E66.09 - Other obesity due to excess calories, I10 - Essential (primary) hypertension, J45.40 - Moderate persistent asthma, uncomplicated, M17.0 - Bilateral primary osteoarthritis of knee, Z68.30 - Body mass index [BMI] 30.0-30.9, adult Comprehensive Met. Panel Today E11.9 - Type 2 diabetes mellitus without complications, E66.09 - Other obesity due to excess calories, I10 - Essential (primary) hypertension, J45.40 - Moderate persistent asthma, uncomplicated, M17.0 - Bilateral primary osteoarthritis of knee, Z68.30 - Body mass index [BMI] 30.0-30.9, adult Hemoglobin A1c Today E11.9 - Type 2 diabetes mellitus without complications, E66.09 - Other obesity due to excess calories, I10 - Essential (primary) hypertension, J45.40 - Moderate persistent asthma, uncomplicated, M17.0 - Bilateral primary osteoarthritis of knee, Z68.30 - Body mass index [BMI] 30.0- 30.9, adult LDL Cholesterol Direct Today E11.9 - Type 2 diabetes mellitus without complications, E66.09 - Other obesity due to excess calories, I10 - Essential (primary) hypertension, J45.40 - Moderate persistent asthma, uncomplicated, M17.0 - Bilateral primary osteoarthritis of knee, Z68.30 - Body mass index [BMI] 30.0-30.9, adult Medications: Discontinued diclofenac sodium 3% Discontinued Reason: Doctor's Order 1 appl topical BID 100 grams 3RF Quality Reporting (2019) Depression/Bipolar (159/160/161/177) PHQ-9: Total score: 1 Coding Level of Care Code Medicare Subsequent (G0439) Est Pt Level 3 (53355) Diagnoses Medicare annual wellness visit, subsequent Z00.00 Diet-controlled diabetes mellitus E11.9 Class 1 obesity due to excess calories with serious comorbidity and body mass index (BMI) of 30.0 to 30.9 in adult E66.09; Z68.30 Body mass index: BMI 30.0-30.9 Obesity classification: adult class 1 (BMI 30 - 34.9) Serious obesity comorbidity presence: with serious comorbidity Moderate persistent asthma without complication J45.40 Asthma complication type: uncomplicated Hypertension, essential I10 Primary osteoarthritis of knees, bilateral M17.0 CPT Codes Advance Care Planning - Advance Care Planning discussion: On file, no changes ([id number]) Advance Care Planning - Time spent: 1-15 minutes, on File ([id number]) Additional Codes PHQ-9 - 38514 - PHQ-9 Billing: Yes ([id number]) Advance Care Planning Advance Care Planning discussion: On file, no changes Forms completed: MOLST Time spent: 1-15 minutes, on File
== END 2024-09-19 10:49 | disposition home or self-care (01) ==
LOC: HO.HMCC 10:12
PROVIDERS: PCP Internal Medicine; Visit Provider Internal Medicine
DX: Z00.00 Encounter for general adult medical examination without abnormal findings (principal); E11.9 Type 2 diabetes mellitus without complications; E66.09 Other obesity due to excess calories; Z68.30 Body mass index [BMI] 30.0-30.9, adult; J45.40 Moderate persistent asthma, uncomplicated; I10 Essential (primary) hypertension; M17.0 Bilateral primary osteoarthritis of knee

== ENCOUNTER 2025-01-23 09:38 | Outpatient (AMB) | payer MEDICARE, SELFPAY ==
[2025-01-23 09:55] VITALS: BP 160/84; PULSE 90; O2SAT 97; BMI 32.3
--- NOTE | 2025-01-23 09:55 | A.OFFPC_ITS ---
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: No Accompanied by: Self / Same As Patient Allergies No Known Allergies (No Known Allergies*) Allergy (Verified 01/23/25 09:56) Medication List - Last Reconciled 01/23/25 by Rodrigo Burns MD ascorbate calcium (vitamin C) 500 mg PO DAILY cholecalciferol (vitamin D3) 50 mcg PO DAILY fluticasone furoate-vilanterol 200-25 mcg/dose (Breo Ellipta) 1 inh inhalation DAILY 30 days losartan-hydrochlorothiazide 100-25 mg 1 tab PO DAILY 90 days naproxen sodium (Aleve) 220 mg PO Q12H PRN Tobacco use date assessed: 01/23/25 Fall risk assessment: No Falls in past year Last assessed Fall Risk: 01/23/25 Dental Screening Dental Screen Date: 01/23/25 Did you have a dental visit in the last 12 months?: No Did you have a dental problem in the last 6 months where you did not have access to dental care?: No Was dental information given to patient?: Patient declined HPI 4m f/u HPI Details History The patient is an 79-year-old female presenting for longitudinal care, patient has a history of diet-controlled diabetes, hypertension, which is uncontrolled Bilateral knee osteoarthritis, cane dependent, obesity Essential Hypertension: - The patient has a known history of ess ential hypertension, currently managed with losartan hydrochlorothiazide 100-25 mg once daily. - Reports feeling nervous when coming to medical appointments, suspecting it contributes to elevated blood pressure readings. - Does not measure blood pressure at [facility], so home parameters are unknown. - Current episodic high blood pressure a t 160 mmHg noted, with recent office visit reading being elevated. - No associated symptoms reported such a s headaches or dizziness. Knee Pain: - Describes knee pain as intermittent an d experienced primarily during movement, particularly when beginning to walk. - Pain reportedly improves with use of a topical rub and does not cause instability. - Denies desire for knee replacement dulce jerry despite sometimes feeling pain during movement. - Remains physically active as able, man aging with topical treatment. Medical History: - Essential Hypertension - Type 2 Diabetes Mellitus, diet-control led - Elevated A1c noted in past labs, gage hui 6.3% - obesity Surgical History: - Intraocular lens implantation (catarac t surgery) both eyes Social History: - Indicates anxiety related to medical a ppointments - Engaged in planning transportation ahe ad to avoid missing medical visits Problem List - Essential Hypertension - Knee Pain bilateral osteoarthritis - Type 2 Diabetes Mellitus, diet-control led Cane dependent Obesity Patient Instructions - Continue taking losartan hydrochloroth iazide as prescribed - Start atenolol 25 mg daily for additio nal blood pressure management and anxiety reduction - Schedule and attend an eye examination due to history of diabetes - Consider knee pain management options if symptoms change or worsen - Monitor blood pressure if possible - Attend follow-up appointment in three months, labs to be done before visit Review of Systems General: No fever no chills neurological: No headaches no dizziness ear nose throat: No sore throat no hearing difficulty no ear pain cardiovascular: No syncope, no chest pain, no palpitations gastrointestinal: No nausea vomiting or diarrhea endocrine: No polyuria polydipsia no heat intolerance genitourinary: No dysuria skin: No new complaints Physical Exam general: No acute distress HEENT: No acute findings neck: Supple respiratory system: Able to talk in full sentences, no audible wheeze no stridor cardiovascular: S1-S2 RRR, blood pressure is high at 160 gastrointestinal: No pain extremities: No new findings, knee pain present but not unstable [employer]: Alert awake oriented x3 motor intact uses cane for ambulation skin: Normal turgor PFSH Surgical History No pertinent past surgical history Social History Housing: House Patient Tobacco Use Status: Never used Tobacco e-Cigarette/Vaping Use: Never Used service: No Current occupational status: retired Cognitive needs: No Hearing needs: No Vision needs: No Questionnaire PHQ-9 Over the last 2 weeks, how often have you been bothered by any of the following problems? 1. Little interest or pleasure in doing things: not at all 2. Feeling down, depressed, or hopeless: not at all 3. Trouble falling or staying asleep, or sleeping too much: several days 4. Feeling tired or having little energy: not at all 5. Poor appetite or overeating: not at all 6. Feeling bad about yourself - or that you are a failure or have let yourself or your family down: not at all 7. Trouble concentrating on things, such as reading the newspaper or watching television: not at all 8. Moving or speaking so slowly that other people could have noticed. Or the opposite - being so fidgety or restless that you have been moving around a lot more than usual: not at all 9. Thoughts that you would be better off or of hurting yourself in some way: not at all Total score: 1 Depression Screening Interpretation: Negative Depression Screening Done: Yes 18858 - PHQ-9 Billing: Yes Source: Developed by Drs. Joseph Mcadams, Kassi Euceda, Cirilo Grossman and colleagues, with an educational yancy from [employer]. Thrive Questionnaire Date Thrive assessed: 01/23/25 I am a: Patient What is your living situation today?: I have a steady place to live Within the past 12 months, did the food you bought not last and you didn't have the money to get more?: Never true Within the past 12 months, did you worry whether your food would run out before you got money to buy more?: Never true Do you have trouble paying for medicines?: No Do you have trouble getting transportation to medical appointments?: No Do you have trouble paying your heating and electricity bill?: No Do you have trouble taking care of your child, family member or friend?: No Do you have trouble with day-to-day activities such as bathing, preparing meals, shopping, managing finances, etc.?: No Are you currently unemployed and looking for a job?: No Are you interested in more education?: No Please select the resources that you would like help with: None Currently or been in a relationship where the following occur: No concerns reported THRIVE Score: 0 AUDIT C Alcohol Use Questionnaire (AUDIT-C) 1. How often do you have a drink containing alcohol?: Never 3. How often do you have six or more drinks on one occasion?: Never Total Score: 0 Score Reviewed/Action Taken: Yes KRISHNA-7 AMB Questionnaire KRISHNA-7 Date KRISHNA - 7 assessed: 01/23/25 Feeling nervous, anxious, or on edge: 0 = Not at all Not being able to stop or control worryin = Not at all Worrying too much about different things: 0 = Not at all Trouble relaxin = Not at all Being so restless that it is hard to sit still: 0 = Not at all Becoming easily annoyed or irritable: 0 = Not at all Feeling afraid as if something awful might happen: 0 = Not at all Total KRISHNA-7 score (0-4 normal; 5-9 mild; 10-14 moderate; 15-21 severe): 0 Source: Developed by Drs. Joseph Mcadams, Kassi Euceda, Cirilo Grossman and colleagues, with an educational yancy from [employer]. KRISHNA-7 Assessment Billing KRISHNA-7 Assessment Tool: KRISHNA-7 Assessment 26060 Physical exam (Primary Care) Vital Signs: Last Vital Signs Pulse 90 01/23/25 09:55 BP 160/84 H 01/23/25 09:55 Pulse Ox 97 01/23/25 09:55 BMI result Body Mass Index 32.3 Tobacco/Smoking Status: Tobacco use Status Tobacco use date assessed 01/23/25 01/23/25 09:57 Patient Tobacco Use Status Never used Tobacco 01/23/25 09:57 e-Cigarette/Vaping Use Never Used 01/23/25 09:57 PHQ-9: PHQ-9 Score PHQ-9: Total score 1 01/23/25 10:25 Depression Screening Interpretation: Negative Thrive Assessment: Date of Thrive Assessment Date Thrive assessed 01/23/25 01/23/25 09:57 Currently or been in a relationship where the following occur: No concerns reported Results AMB Hemoglobin A1c AMB Hemoglobin A1c 6.3 % Last Edit by Checo Warren CMA on 01/23/25 10: 17 Results Reviewed Results Reviewed: Laboratory Last Values Hgb A1c (Clinic) 6.3 % (4.0-6.0) H 01/23/25 10:14 Coding Level of Care Code Est Pt Level 4 (44493) Complex EM visit Add On G2211 Diagnoses Hypertension, essential I10 Diet-controlled diabetes mellitus E11.9 Class 1 obesity due to excess calories with serious comorbidity and body mass index (BMI) of 30.0 to 30.9 in adult E66.09; Z68.30 Body mass index: BMI 30.0-30.9 Obesity classification: adult class 1 (BMI 30 - 34.9) Serious obesity comorbidity presence: with serious comorbidity Primary osteoarthritis of knees, bilateral M17.0 Ambulates with cane Z99.89 Additional Codes KRISHNA-7 Assessment Billing - KRISHNA-7 Assessment Tool: KRISHNA-7 Assessment 12386 ([id number]) PHQ-9 - 26564 - PHQ-9 Billing: Yes ([id number]) Assessment & Plan Assessment & Plan (1) Hypertension, essential: Code(s): I10 - Essential (primary) hypertension Category: Medical (2) Diet-controlled diabetes mellitus: Code(s): E11.9 - Type 2 diabetes mellitus without complications Category: Medical (3) Obesity due to excess calories: Code(s): E66.09 - Other obesity due to excess calories Category: Medical Qualifiers: Body mass index: BMI 30.0-30.9 Obesity classification: adult class 1 (BMI 30 - 34.9) Serious obesity comorbidity presence: with serious comorbidity Qualified Code(s): E66.09 - Other obesity due to excess calories; Z68.30 - Body mass index [BMI] 30.0-30.9, adult (4) Primary osteoarthritis of knees, bilateral: Code(s): M17.0 - Bilateral primary osteoarthritis of knee Category: Medical (5) Ambulates with cane: Code(s): Z99.89 - Dependence on other enabling machines and devices Category: Medical Plan History The patient is an 79-year-old female presenting for [facility] care, patient has a history of diet-controlled diabetes, hypertension, which is uncontrolled Bilateral knee osteoarthritis, cane dependent, obesity Essential Hypertension: - The patient has a known history of essential hypertension, currently managed with losartan hydrochlorothiazide 100-25 mg once daily. - Reports feeling nervous when coming to medical appointments, suspecting it contributes to elevated blood pressure readings. - Does not measure blood pressure at home, so home parameters are unknown. - Current episodic high blood pressure at 160 mmHg noted, with recent office visit reading being elevated. - No associated symptoms reported such as headaches or dizziness. Knee Pain: - Describes knee pain as intermittent and experienced primarily during movement, particularly when beginning to walk. - Pain reportedly improves with use of a topical rub and does not cause instability. - Denies desire for knee replacement surgery despite sometimes feeling pain during movement. - Remains physically active as able, managing with topical treatment. Medical History: - Essential Hypertension - Type 2 Diabetes Mellitus, diet-controlled - Elevated A1c noted in past labs, currently 6.3% - obesity Surgical History: - Intraocular lens implantation (cataract surgery) both eyes Social History: - Indicates anxiety related to medical appointments - Engaged in planning transportation ahead to avoid missing medical visits Problem List - Essential Hypertension - Knee Pain bilateral osteoarthritis - Type 2 Diabetes Mellitus, diet-controlled Cane dependent Obesity Patient Instructions - Continue taking losartan hydrochlorothiazide as prescribed - Start atenolol 25 mg daily for additional blood pressure management and anxiety reduction - Schedule and attend an eye examination due to history of diabetes - Consider knee pain management options if symptoms change or worsen - Monitor blood pressure if possible - Attend follow-up appointment in three months, labs to be done before visit Orders: Orders AMB Hemoglobin A1c Today Z13.9 - Encounter for screening, unspecified Complete Blood Count Auto Diff Today E11.9 - Type 2 diabetes mellitus without complications, E66.09 - Other obesity due to excess calories, I10 - Essential (primary) hypertension, M17.0 - Bilateral primary osteoarthritis of knee, Z68.30 - Body mass index [BMI] 30.0-30.9, adult, Z99.89 - Dependence on other enabling machines and devices Lipid Panel Today E11.9 - Type 2 diabetes mellitus without complications, E66.09 - Other obesity due to excess calories, I10 - Essential (primary) hype rtension, M17.0 - Bilateral primary osteoarthritis of knee, Z68.30 - Body mass index [BMI] 30.0-30.9, adult, Z99.89 - Dependence on other enabling machines and devices TSH reflex Free T4 Today E11.9 - Type 2 diabetes mellitus without complications, E66.09 - Other obesity due to excess calories, I10 - Essential (primary) hypertension, M17.0 - Bilateral primary osteoarthritis of knee, Z68.30 - Body mass index [BMI] 30.0-30.9, adult, Z99.89 - Dependence on other enabling machines and devices Microalbumin, Random (w Creat) Today E11.9 - Type 2 diabetes mellitus without complications, E66.09 - Other obesity due to excess calories, I10 - Essential (primary) hypertension, M17.0 - Bilateral primary osteoarthritis of knee, Z68.30 - Body mass index [BMI] 30.0-30.9, adult, Z99.89 - Dependence on other enabling machines and devices Comprehensive [place]. Panel Fast Today E11.9 - Type 2 diabetes mellitus without complications, E66.09 - Other obesity due to excess calories, I10 - Essential (primary) hypertension, M17.0 - Bilateral primary osteoarthritis of knee, Z68.30 - Body mass index [BMI] 30.0-30.9, adult, Z99.89 - Dependence on other enabling machines and devices Vitamin D 25-OH (D2 and D3) Today E11.9 - Type 2 diabetes mellitus without complications, E66.09 - Other obesity due to excess calories, I10 - Essential (primary) hypertension, M17.0 - Bilateral primary osteoarthritis of knee, Z68.30 - Body mass index [BMI] 30.0-30.9, adult, Z99.89 - Dependence on other enabling machines and devices Vitamin B12 Today E11.9 - Type 2 diabetes mellitus without complications, E66.09 - Other obesity due to excess calories, I10 - Essential (primary) hypertension, M17.0 - Bilateral primary osteoarthritis of knee, Z68.30 - Body mass index [BMI] 30.0-30.9, adult, Z99.89 - Dependence on other enabling machines and devices Hemoglobin A1c Today E11.9 - Type 2 diabetes mellitus without complications, E66.09 - Other obesity due to excess calories, I10 - Essential (primary) hypertension, M17.0 - Bilateral primary osteoarthritis of knee, Z68.30 - Body mass index [BMI] 30.0-30.9, adult, Z99.89 - Dependence on other enabling machines and devices Medications: New atenolol 25 mg PO DAILY 90 tabs 0RF
--- OUTSIDE RECORDS SUMMARY | 2025-01-23 11:07 | XMS_ITS | Patient Health Record ---
Author Organization [facility] Address [address] [place] [address] Care Team Providers Care Health Care Aide Name Role Phone Grant ESPARZA, Asma Primary Care Provider Joseph Gardner [phone] Reason For Referral No Information Medications Medication SIG (Take, Route, Frequency, Duration) Notes Start Date End Date Status Aleve 220 MG 1 tablet as needed Orally every 12 hrs Active hydroCHLOROthiazide 25 MG 1 tablet Orall y Once a day Active Lisinopril & Diet Manage Pro d 20 MG Orally Active Suprep Bowel Prep 1 kit as directed Oral ly as directed for 1 dose 12/09/2014 Active prednisoLONE Acetate 1 % instill 1 drop into left eye four times a day Ophthalmic for 25 Active Vitamin D (Ergocalciferol) 37809 UNIT Oral for 28 Active Advair Diskus 100-50 MCG/DOSE Inhalation for 30 Active Problems Problem Type SNOMED Code ICD Code Onset Dates Problem Status W/U Status Risk Notes Problem [id number] Encounter for screening for malignant neoplasm of colon (Z12.11) Active confirmed Problem [id number] Personal history of colonic polyps (Z86.010) Active confirmed Plan Of Treatment Future Test Test Name Order Date COLONOSCOPY 12/07/2014 Insurance Providers Payer Name Payer Address Payer Phone Subscriber Number Group Number Insured Name Patient Relationship to Insured Coverage Start Date Coverage End Date [employer] [address] [place] [address] [phone] [id number] BLAIRE DE LUNA Self - patient is the insured Medical (General) History Medical History History ICD Code Colonoscopy 06-27-2007 was ne g except for sigmoid diverticulosis and internal hemorrhoids Tubular adenoma removed in 2001 HTN Denies [place],DM,CVA,Lung disease,renal dise ase Asthma Arthritis-right knee Surgical History Surgery Date(Month/Year) Cataracts and lens implants--[facility]--11/2013
== END 2025-01-23 10:27 | disposition home or self-care (01) ==
LOC: HO.HMCC 09:39
PROVIDERS: PCP Internal Medicine; Visit Provider Internal Medicine
DX: I10 Essential (primary) hypertension (principal); E11.9 Type 2 diabetes mellitus without complications; E66.09 Other obesity due to excess calories; Z68.30 Body mass index [BMI] 30.0-30.9, adult; M17.0 Bilateral primary osteoarthritis of knee; Z99.89 Dependence on other enabling machines and devices; Z13.9 Encounter for screening, unspecified

== ENCOUNTER → 2025-01-23 09:38 | Outpatient (BNVA) | payer MEDICARE, SELFPAY | PROVIDERS: PCP Internal Medicine; Visit Provider Internal Medicine | DX: I10 Essential (primary) hypertension (principal); E11.9 Type 2 diabetes mellitus without complications; E66.09 Other obesity due to excess calories; Z68.30 Body mass index [BMI] 30.0-30.9, adult; M17.0 Bilateral primary osteoarthritis of knee; Z99.89 Dependence on other enabling machines and devices | CPT/HCPCS: 83036; 96127; 99212 ==

== ENCOUNTER 2025-04-24 08:17 | Outpatient (AMB) | payer MEDICARE, SELFPAY ==
--- NOTE | 2025-04-24 09:26 | MHC.PC.OV ---
Intake Visit Reasons: 3 months f/up Allergies No Known Allergies (No Known Allergies*) Allergy (Verified 01/23/25 09:56) Medication List - Last Reconciled 04/24/25 by Rodrigo Burns MD ascorbate calcium (vitamin C) 500 mg PO DAILY atenolol 25 mg PO DAILY cholecalciferol (vitamin D3) 50 mcg PO DAILY fluticasone furoate-vilanterol 200-25 mcg/dose (Breo Ellipta) 1 inh inhalation DAILY 30 days losartan-hydrochlorothiazide 100-25 mg 1 tab PO DAILY 90 days naproxen sodium (Aleve) 220 mg PO Q12H PRN Tobacco use date assessed: 01/23/25 Dental Screening Dental Screen Date: 01/23/25 HPI 3 months f/up HPI Details History The patient is an 79-year-old female presenting for longitudinal care, patient has a history of diet-controlled diabetes, hypertension, Bilateral knee osteoarthritis, cane dependent, obesity Essential Hypertension: - The patient has a known history of essential hypertension, currently managed with losartan hydrochlorothiazide 100-25 mg once daily. - atenolol 25 mg was added last visit, patient has tolerated med, how ever not monitoring it at home refill sent. Problem List - Essential Hypertension - Knee Pain bilateral osteoarthritis - Type 2 Diabetes Mellitus, diet-controlled, last Hba1c 6.3% Cane dependent Obesity Patient Instructions - Continue taking losartan hydrochlorothiazide as prescribed - continue atenolol 25 mg daily - Schedule and attend an eye examination due to history of diabetes - Monitor blood pressure if possible - Attend follow-up appointment in three months, labs are needed [place] Review of Systems General: No fever no chills neurological: No headaches no dizziness ear nose throat: No sore throat no hearing difficulty no ear pain cardiovascular: No syncope, no chest pain, no palpitations gastrointestinal: No nausea vomiting or diarrhea endocrine: No polyuria polydipsia no heat intolerance genitourinary: No dysuria skin: No new complaints PFSH Surgical History No pertinent past surgical history Social History Housing: House Patient Tobacco Use Status: Never used Tobacco e-Cigarette/Vaping Use: Never Used service: No Current occupational status: retired Cognitive needs: No Hearing needs: No Vision needs: No Questionnaire Thrive Questionnaire Date Thrive assessed: 01/23/25 KRISHNA-7 AMB Questionnaire KRISHNA-7 Date KRISHNA - 7 assessed: 01/23/25 Source: Developed by Drs. Joseph Mcadams, Kassi Euceda, Cirilo Grossman and colleagues, with an educational yancy from [employer]. Physical exam (Primary Care) Tobacco/Smoking Status: Tobacco use Status Tobacco use date assessed 01/23/25 04/24/25 09:29 Patient Tobacco Use Status Never used Tobacco 04/24/25 09:29 e-Cigarette/Vaping Use Never Used 04/24/25 09:29 Thrive Assessment: Date of Thrive Assessment Date Thrive assessed 01/23/25 04/24/25 09:29 Telehealth Telehealth Telehealth Platform: [employer] Location of provider rendering services: practice address Location of patient: address on file Patient Identification confirmed using: Name, : Yes Telehealth method: voice only Patient verbally consented to treatment: Yes Patient verbally consented to billing insurance company: Yes Patient informed of any privacy concerns related to visit: Yes Minutes spent on Phone/Video with Pt.: 13 Coding Level of Care Code Tele Est Pt Level 3 (43591) Diagnoses Hypertension, essential I10 Diet-controlled diabetes mellitus E11.9 Class 1 obesity due to excess calories with serious comorbidity and body mass index (BMI) of 30.0 to 30.9 in adult E66.09; Z68.30 Body mass index: BMI 30.0-30.9 Obesity classification: adult class 1 (BMI 30 - 34.9) Serious obesity comorbidity presence: with serious comorbidity Primary osteoarthritis of knees, bilateral M17.0 Ambulates with cane Z99.89 Assessment & Plan Assessment & Plan (1) Hypertension, essential: Code(s): I10 - Essential (primary) hypertension Category: Medical (2) Diet-controlled diabetes mellitus: Code(s): E11.9 - Type 2 diabetes mellitus without complications Category: Medical (3) Obesity due to excess calories: Code(s): E66.09 - Other obesity due to excess calories Category: Medical Qualifiers: Body mass index: BMI 30.0-30.9 Obesity classification: adult class 1 (BMI 30 - 34.9) Serious obesity comorbidity presence: with serious comorbidity Qualified Code(s): E66.09 - Other obesity due to excess calories; Z68.30 - Body mass index [BMI] 30.0-30.9, adult (4) Primary osteoarthritis of knees, bilateral: Code(s): M17.0 - Bilateral primary osteoarthritis of knee Category: Medical (5) Ambulates with cane: Code(s): Z99.89 - Dependence on other enabling machines and devices Category: Medical Plan History The patient is an 79-year-old female presenting for [facility] care, patient has a history of diet-controlled diabetes, hypertension, Bilateral knee osteoarthritis, cane dependent, obesity Essential Hypertension: - The patient has a known history of essential hypertension, currently managed with losartan hydrochlorothiazide 100-25 mg once daily. - atenolol 25 mg was added last visit, patient has tolerated med, how ever not monitoring it at home refill sent. Problem List - Essential Hypertension - Knee Pain bilateral osteoarthritis - Type 2 Diabetes Mellitus, diet-controlled, last Hba1c 6.3% Cane dependent Obesity Patient Instructions - Continue taking losartan hydrochlorothiazide as prescribed - continue atenolol 25 mg daily - Schedule and attend an eye examination due to history of diabetes - Monitor blood pressure if possible - Attend follow-up appointment in three months, labs are needed [place]enta Medications: Refilled atenolol 25 mg PO DAILY 90 tabs 0RF losartan-hydrochlorothiazide 100-25 mg 1 tab PO DAILY 90 tabs 1RF 90 days
== END 2025-04-24 10:09 | disposition home or self-care (01) ==
LOC: HO.HMCC 08:17
PROVIDERS: PCP Internal Medicine; Visit Provider Internal Medicine
DX: I10 Essential (primary) hypertension (principal); E11.9 Type 2 diabetes mellitus without complications; E66.09 Other obesity due to excess calories; Z68.30 Body mass index [BMI] 30.0-30.9, adult; M17.0 Bilateral primary osteoarthritis of knee; Z99.89 Dependence on other enabling machines and devices